=== PATIENT | male | born 2000 | race Hispanic/Latino ===

== ENCOUNTER 2024-11-23 09:09 | Emergency (ER) | payer SELFPAY ==
[2024-11-23 09:27] VITALS: BP 114/67; PULSE 64; RESP 18; TEMP 36.4; O2SAT 100
--- NOTE | 2024-11-23 10:22 | ED.GENADULT ---
HPI - General Adult General Chief complaint: Abdominal Pain Stated complaint: abd pain and vomiting after eating Time Seen by Provider: 11/23/24 10:01 History of Present Illness HPI narrative: 23-year-old male presents To the emergency department for evaluation for upper and mid abdominal pain. Patient reports symptoms started last night. Patient did have associated nausea. Patient denies any constipation or diarrhea. Patient does report a prior history of heartburn. Patient states he did drink heavier alcohol approximately 1 week ago. Patient denies taking any ibuprofen. Patient reports symptoms have since improved. Patient denies any significant past medical history denies any abdominal surgeries. Digital Strategy Specialist services were used. Related Data Allergies Allergy/AdvReac Type Severity Reaction Status Date / Time No Known Allergies Allergy Verified 11/23/24 11:06 Review of Systems Review of Systems: All systems reviewed & are unremarkable except as noted in HPI and below Exam Narrative: APPEARANCE: Well appearing, no pain, no distress, well-nourished. HEAD: normocephalic, atraumatic. EYES: PERRLA/EOMI, conjunctivae clear. NOSE: Normal no drainage EARS:TMS clear with good light reflex. THROAT: Pharynx clear, no exudate. NECK: Supple. No adenopathy, no masses. RESPIRATORY: Airway patent, respirations nonlabored. Clear to auscultation bilaterally, no rales, rhonchi, wheezing. CARDIOVASCULAR: Regular rate and rhythm without murmurs rubs or gallops. ABDOMINAL: Mid abdominal pain MUSCULOSKELETAL: Moves all extremities. Strength/ROM intact, No edema, No calf tenderness. NEURO: Alert. Cranial nerves II through XII intact. Good gait. Good coordination SKIN: Warm, dry. Normal Color Course Vital Signs Vital signs: Vital Signs Temperature 97.6 F 11/23/24 09:27 Pulse Rate 64 11/23/24 09:27 Respiratory Rate 18 11/23/24 09:27 Blood Pressure 114/67 11/23/24 09:27 Pulse Oximetry 100 11/23/24 09:27 Oxygen Delivery Room Air 11/23/24 09:27 Temperature 97.9 F 11/23/24 11:07 Pulse Rate 94 11/23/24 12:17 Respiratory Rate 17 11/23/24 12:17 Blood Pressure 107/66 11/23/24 12:17 Pulse Oximetry 100 11/23/24 12:17 Oxygen Delivery Room Air 11/23/24 11:07 Medical Decision Making [facility] Narrative Medical decision making narrative: 23-year-old male presents emergency department for evaluation for evaluation left upper quadrant abdominal pain. Patient is currently afebrile but does have a leukocytosis of 18.8 and hemoglobin of 17.2. No significant abnormalities on the patient's CMP. INR is 1.0. Urine was positive for ketones but negative for infection. On re-evaluation patient denies any pain or complaints. Patient was treated with IV pain medications, IV fluids IV Protonix IV famotidine. Patient does describe a possible alcohol gastritis with history of GERD. Patient was advised to take omeprazole for the next 14 days to avoid NSAIDs and avoid alcohol in follow-up bland diet. All questions and concerns were addressed. Patient was comfortable plan for discharge and close follow-up. Differential Diagnosis Differential Diagnosis: Colitis, diverticulitis, appendicitis, cholelithiasis, gastritis Vital Signs Vital Signs: Vital Signs Temperature 97.6 F 11/23/24 09:27 Pulse Rate 64 11/23/24 09:27 Respiratory Rate 18 11/23/24 09:27 Blood Pressure 114/67 11/23/24 09:27 Pulse Oximetry 100 11/23/24 09:27 Oxygen Delivery Room Air 11/23/24 09:27 Temperature 97.9 F 11/23/24 11:07 Pulse Rate 94 11/23/24 12:17 Respiratory Rate 17 11/23/24 12:17 Blood Pressure 107/66 11/23/24 12:17 Pulse Oximetry 100 11/23/24 12:17 Oxygen Delivery Room Air 11/23/24 11:07 Lab Data Lab results reviewed: Yes I reviewed the patient's lab results. 11/23/24 10:50 11/23/24 10:50 Labs: Lab Results 11/23/24 11/23/24 Range/Units 10:50 11:20 WBC 18.8 H (4.5-10.0) K/mm3 RBC 5.81 (4.6-6.20) M/mm3 Hgb 17.2 (14.0-18.0) g/dL Hct 51.1 (42.0-52.0) % MCV 88.0 (80-100) fl MCH 29.6 (26-34) pg MCHC 33.7 (32-36) g/dl RDW 12.9 (11.5-14.5) % Plt Count 274 (150-375) k/mm3 MPV 10.3 (7.4-10.4) fl Immature Gran % (Auto) Not Reportable Neut % (Auto) Not Reportable Lymph % (Auto) Not Reportable [place] % (Auto) Not Reportable Eos % (Auto) Not Reportable Baso % (Auto) Not Reportable Lymph # (Auto) Not Reportable [place] # (Auto) Not Reportable Eos # (Auto) Not Reportable Baso # (Auto) Not Reportable Abs Immat Gran (auto) Not Reportable Absolute Neuts (auto) Not Reportable Absolute Nucleated RBC Not Reportable Total Counted 100 Neutrophils % (Manual) 70 (46-73) % Band Neutrophils % 25 H (0-6) % Lymphocytes % (Manual) 0 L (18-44) % Monocytes % (Manual) 4 (3-9) % Eosinophils % (Manual) 1 (0-4) % Nucleated RBC % Not Reportable Abs Neuts (Manual) 17.86 H (1.3-6.7) K/mm3 Abs Lymphs (Manual) 0.00 L (1.1-4.5) K/mm3 Abs Monocytes (Manual) 0.75 (0.1-0.90) K/mm3 Absolute Eos (Manual) 0.18 (0.02-0.50) K/mm3 Platelet Estimate Adequate (Adequate) Schistocytes None seen PT 13.0 (11.1-14.7) Seconds INR 1.0 APTT 25.7 (22.3-36.8) Seconds Sodium 140 (137-145) mmol/L Potassium 4.0 (3.4-5.0) mmol/L Chloride 100 (98-107) mmol/L Carbon Dioxide 28 (22-30) mmol/L Anion Gap 12 (4-12) mmol/L BUN 13 (9-20) mg/dL Creatinine 0.72 (0.7-1.3) mg/dL Estim Creat Clear Calc Not Reportable Estimated GFR > 60 (59 - ) Glucose 116 H (65-110) mg/dL Lactic Acid 1.5 (0.7-2.0) mmol/L Calcium 9.5 (8.4-10.2) mg/dL Total Bilirubin 1.1 (0.2-1.3) mg/dL AST 31 (17-59) U/L ALT 34 (6-50) U/L Alkaline Phosphatase 58 (38-126) U/L Total Protein 9.0 H (6.3-8.2) g/dL Albumin 5.4 H (3.5-5.1) g/dL Lipase 52 (23-300) U/L Urine Color Yellow (Yellow) Urine Appearance Clear (Clear) Urine pH 5.5 (5.0-9.0) Ur Specific [place] 1.033 (1.001-1.035) Urine Protein Trace (Negative) mg/dL Urine Glucose (UA) 1+ H (Negative) mg/dL Urine Ketones 4+ H (Negative) mg/dL Ur Blood (Man) Negative (Negative) Urine Nitrate Negative (Negative) Urine Bilirubin Negative (Negative) Urine Urobilinogen 1.0 (<2.0) mg/dL Add Ur Microanalysis Reviewed Leukocyte Esterase Rfl Negative (Negative) [place]/UL Urine RBC 0-2 (0-2) /hpf Urine WBC 0-5 (0-3) /hpf Ur Squamous Epith Cells None seen (Few) /hpf Urine Bacteria None seen /hpf Urine Casts 0-2 Urine Mucus Present /lpf Discharge Plan Discharge Clinical Impression: Gastritis Patient Disposition: Home Condition: Stable Instructions: Antibiotic Form, Gastritis (DC), Diet for Stomach Ulcers and Gastritis (ED), Abdominal Pain (ED) Additional Instructions: Follow a bland diet. Avoid alcohol and avoid NSAIDs. Omeprazole as directed for the next 14 days. Have close follow-up with your primary care physician. I also do recommend close follow-up with GI. Patient Language: Turkmen Prescriptions: New omeprazole 20 mg capsule,delayed release(DR/EC) 20 mg PO DAILY 14 Days Qty: 14 0RF Follow-up/Referrals: Maninder Harmon MD [Physician] - UNKNOWN,DOCTOR [Primary Care Provider] -
[2024-11-23 10:55] LABS: Hematocrit 51.1 % (42.0-52.0); Hemoglobin 17.2 g/dL (14.0-18.0); Mean Corpuscular HGB Conc 33.7 g/dl (32-36); Mean Corpuscular Hemoglobin 29.6 pg (26-34); Mean Platelet Volume 10.3 fl (7.4-10.4); Platelet Count Result 274 k/mm3 (150-375); Red Blood Count 5.81 M/mm3 (4.6-6.20); Red Cell Distribution Width 12.9 % (11.5-14.5); White Blood Count 18.8 K/mm3 (4.5-10.0)
[2024-11-23 11:04] LABS: Alanine Aminotransferase 34 U/L (6-50); Albumin Level 5.4 g/dL (3.5-5.1); Alkaline Phosphatase 58 U/L (38-126); Anion Gap 12 mmol/L (4-12); Aspartate Amino Transferase 31 U/L (17-59); Bilirubin,Total 1.1 mg/dL (0.2-1.3); Blood Urea Nitrogen 13 mg/dL (9-20); Calcium 9.5 mg/dL (8.4-10.2); Carbon Dioxide 28 mmol/L (22-30); Chloride 100 mmol/L (98-107); Estimated Glomerular Filt Rate > 60; Glucose 116 mg/dL (65-110); Lipase 52 U/L (23-300); Sodium 140 mmol/L (137-145)
[2024-11-23 11:05] LABS: Lactic Acid Reflex 1.5 mmol/L (0.7-2.0)
[2024-11-23 11:07] VITALS: BP 118/76; PULSE 76; RESP 19; TEMP 36.6; O2SAT 100
[2024-11-23] MEDS: LACTATED RINGERS 1,000 ML 999 ML IV CONT (11:11)
[2024-11-23] MEDS: HYDROmorphone HCL INJ (*CRX) 2 MG/ML VIAL 1 MG IV PUSH (11:12)
[2024-11-23] MEDS: PANTOPRAZOLE SODIUM IV 40 MG VIAL IV PUSH (11:13)
[2024-11-23] MEDS: FAMOTIDINE 20 MG/2 ML VIAL IV PUSH (11:13)
[2024-11-23 11:16] LABS: Partial Thromboplastin Time 25.7 Seconds (22.3-36.8)
[2024-11-23 11:23] LABS: Band Neutrophils Percent 25 % (0-6); Neutrophils Absolute Manual 17.86 K/mm3 (1.3-6.7); Neutrophils Percent Manual 70 % (46-73); Total Cells Counted 100
[2024-11-23 11:24] LABS: Eosinophils Absolute Manual 0.18 K/mm3 (0.02-0.50); Eosinophils Percent Manual 1 % (0-4); Lymphocytes Percent Manual 0 % (18-44); Monocytes Absolute Manual 0.75 K/mm3 (0.1-0.90); Monocytes Percent Manual 4 % (3-9); Platelet Estimate Adequate (Adequate); Schistocytes None Seen
[2024-11-23 11:50] LABS: Add Urine Microscopic? YES; Appearance Urine Clear (Clear); Bacteria Urine None Seen /hpf; Bilirubin Urine Negative (Negative); Blood Urine Negative (Negative); Color Urine Yellow (Yellow); Glucose Urine UA 1+ mg/dL (Negative); Ketones Urine 4+ mg/dL (Negative); Leukocyte Esterase Ur Negative LEU/UL (Negative); Mucus Urine Present /lpf; Need Manual Microscopic Reviewed; Nitrate Urine Negative (Negative); Non Pathogenic Casts 0-2; Protein Urine Trace mg/dL (Negative); RBC Urine 0-2 /hpf (0-2); Specific Grav Ur 1.033 (1.001-1.035); Squamous Epithelial Cell Urine None Seen /hpf (Few); WBC Urine 0-5 /hpf (0-3); pH Urine 5.5 (5.0-9.0)
[2024-11-23 12:00] VITALS: BP 110/76; PULSE 87; RESP 17; O2SAT 100
[2024-11-23 12:17] VITALS: BP 107/66; PULSE 94; RESP 17; O2SAT 100
== END 2024-11-23 12:19 | disposition home or self-care (01) ==
PROVIDERS: Emergency Provider Emergency Medicine
DX: K29.70 Gastritis, unspecified, without bleeding (principal)
CPT/HCPCS: 36415; 80053; 81001; 83605; 83690; 85025; 85610; 85730; 96361; 96374; 96375; 99284; J1171; J2470; J7120

== ENCOUNTER 2025-01-22 19:02 | Observation (INO) | payer SELFPAY ==
--- NOTE | ~2025-01-22 | CT_ITS ---
CLINICAL INDICATION: Nausea vomiting and diarrhea with epigastric pain COMPARISON: None. TECHNIQUE: Multiple contiguous axial images of the abdomen and pelvis were performed following the ad ministration of with 100 mL Omnipaque-350 intravenous contrast The dose-length product (DLP) was 254.33 mGy-cm. Automated exposure control and iterative reconstruction technique were employed. FINDINGS/OBSERVATIONS: Visualized lower thorax: The bilateral lung bases are clear. The heart is of normal size, without pericardial effusion. Liver: The liver demonstrates homogeneous enhancement and is not enlarged. Gallbladder and biliary system: The gallbladder is distended, and otherwise unremarkable. Pancreas: The pancreas enhances homogeneously without ductal dilatation. Spleen: The spleen enhances homogeneously and is not enlarged. Kidneys: The bilateral kidneys enhance symmetrically without hydronephrosis or renal calculi. Adrenal glands: Unremarkable. Gastrointestinal tract: Significant mural thickening is identified within the distal stomach, duodenum and proximal small bow el. Mural thickening within the cecum is also noted. Fecal stasis within the distal colon and rectum. Appendix: The appendix is distended measuring 12 mm in caliber with surrounding inflammatory change and hyperem ia. Vasculature: Unremarkable. Lymph nodes: No pathologically enlarged or morphologically suspicious lymph nodes within the retroperitoneum or at the root of the mesentery. Pelvic structures: The bladder is distended, and otherwise unremarkable. The prostate gland is not enlarged. Body wall and musculoskeletal: Small fat-containing umbilical hernia. No significant degenerative disease within the lower thoracic or lumbosacral spine. IMPRESSION: Acute nonruptured appendicitis, as detailed above. Reviewed, dictated and finalized at location A.
[2025-01-22 19:32] VITALS: BP 134/96; PULSE 55; RESP 16; TEMP 36.7; O2SAT 100
--- NOTE | 2025-01-22 19:38 | PC.NURSE ---
Pt requires installment loan collector. Rerecording Mixer Frank #[id number] used for triage assessment.
[2025-01-22 19:56] LABS: Basophils Absolute Auto 0.1 K/mm3 (0.0-0.1); Basophils Percent Auto 0.3 % (0.2-1.2); Eosinophils Percent Auto 0.1 % (0-4.4); Hematocrit 50.7 % (42.0-52.0); Hemoglobin 17.4 g/dL (14.0-18.0); Immature Granulocyte Percent A 0.5 % (0-0.5); Lymphocytes Absolute Auto 3.51 K/mm3 (0.9-3.2); Lymphocytes Percent Auto 16.8 % (18.3-44.2); Mean Corpuscular HGB Conc 34.3 g/dl (32-36); Mean Corpuscular Hemoglobin 29.1 pg (26-34); Mean Corpuscular Volume 84.9 fl (80-100); Mean Platelet Volume 10.2 fl (7.4-10.4); Monocytes Absolute Auto 1.8 K/mm3 (0.1-0.6); Monocytes Percent Auto 8.5 % (2.6-8.5); Neutrophils Absolute Auto 15.5 K/mm3 (1.3-6.7); Neutrophils Percent Auto 73.8 % (45.5-73.1); Platelet Count Result 287 k/mm3 (150-375); Red Blood Count 5.97 M/mm3 (4.6-6.20); Red Cell Distribution Width 12.5 % (11.5-14.5); White Blood Count 20.9 K/mm3 (4.5-10.0)
[2025-01-22] MEDS: SODIUM CHLORIDE 0.9% IV 1,000 ML 999 ML IV CONT (19:57)
[2025-01-22] MEDS: PANTOPRAZOLE SODIUM IV 40 MG VIAL IV PUSH (19:58)
[2025-01-22] MEDS: ONDANSETRON INJ 4 MG/2 ML VIAL IV PUSH ×2 (19:58→21:13)
--- NOTE | 2025-01-22 19:59 | PC.NURSE ---
Toucher Up Cristofer #[id number] used for translation and education of medication administration. All questions answered.
--- NOTE | 2025-01-22 20:00 | ED_ITS ---
HPI - General Adult General Chief complaint: Nausea/Vomiting/Diarrhea Stated complaint: vomiting, upper abdominal pain Time Seen by Provider: 01/22/25 19:43 History of Present Illness HPI narrative: Patient is a 24-year-old gentleman who presents emergency department with chief complaint of abdominal pain. Patient reports he started having sharp pain in his epigastric region patient reports that he has had nausea and had several episodes of vomiting in the emergency department whenever he arrived. Patient reports he has recently started on omeprazole Related Data Allergies Allergy/AdvReac Type Severity Reaction Status Date / Time No Known Allergies Allergy Verified 01/22/25 19:37 Review of Systems 2 Review of Systems: A 10 system review of systems was completed on the patient and is negative except for what is stated in the HPI. Nursing and ancillary documentation was reviewed. Exam 2 Narrative: GENERAL: Well-appearing, well-nourished, and in no acute distress. HEAD: Normocephalic, atraumatic. EYES: PERRLA and EOMI. ENT: Nares clear, no rhinorrhea or epistaxis. Mucous membranes moist. NECK: Supple. CHEST: Clear to auscultation. No respiratory distress. HEART: Regular rate and rhythm. No murmur heard. Normal peripheral pulses. ABDOMEN: Soft, tenderness to palpation in the epigastric region, nondistended, normal active bowel sounds. EXTREMITIES: Normal range of motion. No edema. SKIN: Warm, dry, no rash. NEURO: No focal deficits. Alert and oriented x3. PSYCH: Normal mood and affect. Course Vital Signs Vital signs: Vital Signs Temperature 36.7 C 01/22/25 19:32 Pulse Rate 55 L 01/22/25 19:32 Respiratory Rate 16 01/22/25 19:32 Blood Pressure 134/96 H 01/22/25 19:32 Pulse Oximetry 100 01/22/25 19:32 Oxygen Delivery Room Air 01/22/25 19:32 Temperature 36.7 C 01/22/25 19:32 Pulse Rate 55 L 01/22/25 19:32 Respiratory Rate 16 01/22/25 19:32 Blood Pressure 134/96 H 01/22/25 19:32 Pulse Oximetry 100 01/22/25 19:32 Oxygen Delivery Room Air 01/22/25 19:32 Medical Decision Making [facility] Narrative Medical decision making narrative: Differential diagnosis includes intra-abdominal infection, diverticulitis, colitis, appendicitis Laboratory studies showed a white count of 20.9 electrolytes are within normal limits CT scan showed uncomplicated appendicitis Vital Signs Vital Signs: Vital Signs Temperature 36.7 C 01/22/25 19:32 Pulse Rate 55 L 01/22/25 19:32 Respiratory Rate 16 01/22/25 19:32 Blood Pressure 134/96 H 01/22/25 19:32 Pulse Oximetry 100 01/22/25 19:32 Oxygen Delivery Room Air 01/22/25 19:32 Temperature 36.7 C 01/22/25 19:32 Pulse Rate 55 L 01/22/25 19:32 Respiratory Rate 16 01/22/25 19:32 Blood Pressure 134/96 H 01/22/25 19:32 Pulse Oximetry 100 01/22/25 19:32 Oxygen Delivery Room Air 01/22/25 19:32 Lab Data 01/22/25 19:49 01/22/25 19:49 Labs: Lab Results 01/22/25 Range/Units 19:49 WBC 20.9 H (4.5-10.0) K/mm3 RBC 5.97 (4.6-6.20) M/mm3 Hgb 17.4 (14.0-18.0) g/dL Hct 50.7 (42.0-52.0) % MCV 84.9 (80-100) fl MCH 29.1 (26-34) pg MCHC 34.3 (32-36) g/dl RDW 12.5 (11.5-14.5) % Plt Count 287 (150-375) k/mm3 MPV 10.2 (7.4-10.4) fl Immature Gran % (Auto) 0.5 (0-0.5) % Neut % (Auto) 73.8 H (45.5-73.1) % Lymph % (Auto) 16.8 L (18.3-44.2) % [place] % (Auto) 8.5 (2.6-8.5) % Eos % (Auto) 0.1 (0-4.4) % Baso % (Auto) 0.3 (0.2-1.2) % Lymph # (Auto) 3.51 H (0.9-3.2) K/mm3 [place] # (Auto) 1.8 H (0.1-0.6) K/mm3 Eos # (Auto) 0.0 (0-0.3) K/mm3 Baso # (Auto) 0.1 (0.0-0.1) K/mm3 Abs Immat Gran (auto) 0.10 H (0.00-0.031) K/mm3 Absolute Neuts (auto) 15.5 H (1.3-6.7) K/mm3 Absolute Nucleated RBC 0.000 (0.0-0.012) K/mm3 Nucleated RBC % 0.0 (0.0-0.2) % Sodium 140 (137-145) mmol/L Potassium 3.3 L (3.4-5.0) mmol/L Chloride 102 (98-107) mmol/L Carbon Dioxide 28 (22-30) mmol/L Anion Gap 10 (4-12) mmol/L BUN 11 (9-20) mg/dL Creatinine 0.89 (0.7-1.3) mg/dL Estim Creat Clear Calc 96 ml/min Estimated GFR > 60 (59 - ) Glucose 122 H (65-110) mg/dL Calcium 9.6 (8.4-10.2) mg/dL Total Bilirubin 0.7 (0.2-1.3) mg/dL AST 40 (17-59) U/L ALT 56 H (6-50) U/L Alkaline Phosphatase 53 (38-126) U/L Total Protein 8.1 (6.3-8.2) g/dL Albumin 4.9 (3.5-5.1) g/dL Lipase 48 (23-300) U/L Discharge Plan Discharge Clinical Impression: Acute appendicitis Patient Disposition: Still a Patient Condition: Stable Patient Language: Argentine Prescriptions: No Action omeprazole 20 mg capsule,delayed release(DR/EC) 20 mg PO DAILY 14 Days Qty: 14 0RF Follow-up/Referrals: UNKNOWN,DOCTOR [Primary Care Provider] - Time of Disposition: 20:54
[2025-01-22 20:07] LABS: Alanine Aminotransferase 56 U/L (6-50); Albumin Level 4.9 g/dL (3.5-5.1); Alkaline Phosphatase 53 U/L (38-126); Anion Gap 10 mmol/L (4-12); Aspartate Amino Transferase 40 U/L (17-59); Bilirubin,Total 0.7 mg/dL (0.2-1.3); Blood Urea Nitrogen 11 mg/dL (9-20); Calcium 9.6 mg/dL (8.4-10.2); Carbon Dioxide 28 mmol/L (22-30); Chloride 102 mmol/L (98-107); Estimated CRCL calculation 96 ml/min; Estimated Glomerular Filt Rate > 60; Glucose 122 mg/dL (65-110); Lipase 48 U/L (23-300); Potassium 3.3 mmol/L (3.4-5.0); Sodium 140 mmol/L (137-145); Total Protein 8.1 g/dL (6.3-8.2)
[2025-01-22 21:11] LABS: Add Urine Microscopic? NO; Appearance Urine Clear (Clear); Bilirubin Urine Negative (Negative); Blood Urine Negative (Negative); Color Urine Yellow (Yellow); Glucose Urine UA Negative (Negative); Ketones Urine Negative (Negative); Leukocyte Esterase Ur Negative LEU/UL (Negative); Nitrate Urine Negative (Negative); Protein Urine Negative (Negative); Specific Grav Ur 1.034 (1.001-1.035); Urobilinogen Urine 0.2 mg/dL (<2.0)
[2025-01-22] MEDS: PIPERACILLN/TAZ 3.375GM/NS50ML 3.375 GM/50 ML BAG IVPB (21:13)
[2025-01-22] MEDS: MORPHINE SULFATE (*CRX) 4 MG/ML INJ IV PUSH (21:13)
[2025-01-22 21:14] VITALS: BP 138/99; PULSE 65; RESP 17; O2SAT 100
[2025-01-22 23:44] VITALS: BMI 26.2
--- NOTE | 2025-01-22 23:46 | ADMGEN ---
This patient, Panfilo Rodriguez, was admitted to [address] [place] [address] Room 306-02. Patient/family oriented to hospital policies and general routines including ID bracelet, bed and alarms, visiting hours, pain management, procedures, bathroom and other care routines, personal items, smoking policy, room service/diet, and visiting hours. Information on how to activate the Rapid Response Team has been discussed. Patient/Family are encouraged to report perceived risks to care and to ask questions if they do not understand what they are told or what they should do.
[2025-01-22] MEDS: SODIUM CHLORIDE 0.9% IV 1,000 ML 125 ML IV CONT (23:56)
[2025-01-23] VITALS (13 sets, daily range): BP systolic 94–122; BP diastolic 49–75; PULSE 67–90; RESP 13–18; TEMP 36.2–37; O2SAT 96–100
[2025-01-23] MEDS: MORPHINE SULFATE (*CRX) 4 MG/ML INJ IV PUSH
[2025-01-23] MEDS: PIPERACILLN/TAZ 3.375GM/NS50ML 3.375 GM/50 ML BAG IVPB ×2 (03:20→08:46)
[2025-01-23 06:46] LABS: Basophils Percent Auto 0.2 % (0.2-1.2); Hematocrit 48.3 % (42.0-52.0); Hemoglobin 16.3 g/dL (14.0-18.0); Immature Granulocyte Absolute 0.09 K/mm3 (0.00-0.031); Immature Granulocyte Percent A 0.5 % (0-0.5); Lymphocytes Absolute Auto 1.65 K/mm3 (0.9-3.2); Lymphocytes Percent Auto 8.5 % (18.3-44.2); Mean Corpuscular HGB Conc 33.7 g/dl (32-36); Mean Corpuscular Hemoglobin 29.2 pg (26-34); Mean Corpuscular Volume 86.4 fl (80-100); Monocytes Absolute Auto 1.4 K/mm3 (0.1-0.6); Monocytes Percent Auto 7.1 % (2.6-8.5); Neutrophils Absolute Auto 16.3 K/mm3 (1.3-6.7); Neutrophils Percent Auto 83.7 % (45.5-73.1); Platelet Count Result 269 k/mm3 (150-375); Red Blood Count 5.59 M/mm3 (4.6-6.20); Red Cell Distribution Width 12.9 % (11.5-14.5); White Blood Count 19.4 K/mm3 (4.5-10.0)
[2025-01-23 07:12] LABS: Alanine Aminotransferase 49 U/L (6-50); Albumin Level 4.8 g/dL (3.5-5.1); Alkaline Phosphatase 43 U/L (38-126); Anion Gap 10 mmol/L (4-12); Aspartate Amino Transferase 58 U/L (17-59); Bilirubin,Total 1.1 mg/dL (0.2-1.3); Blood Urea Nitrogen 9 mg/dL (9-20); Calcium 9.1 mg/dL (8.4-10.2); Carbon Dioxide 27 mmol/L (22-30); Chloride 102 mmol/L (98-107); Estimated CRCL calculation 100 ml/min; Estimated Glomerular Filt Rate > 60; Glucose 112 mg/dL (65-110); Potassium 3.9 mmol/L (3.4-5.0); Sodium 139 mmol/L (137-145); Total Protein 7.5 g/dL (6.3-8.2)
[2025-01-23] MEDS: SODIUM CHLORIDE 0.9% IV 1,000 ML 125 ML IV CONT (08:46)
--- NOTE | 2025-01-23 08:55 | P.HP_ITS ---
H&P: HPI History of Present Illness Date/Time: 01/23/25 08:55 Chief Complaint: abdominal pain Narrative: Patient is a 24 year old, primarily [place]ib[place]ian-speaking male who presented to the ED last night with complaints of abdominal pain with associated nausea and vomiting that started yesterday morning. He reports that his last episode of emesis was last night around 9 p.m. He last ate around 11 a.m. yesterday morning and his last bowel movement was last night. No prior history of any abdominal surgeries. Patient was previously seen in [place] ED in November for gastritis and he has been taking omeprazole. No other significant medical history. CT showed evidence of acute appendicitis. Afebrile. WBC 20.9 last night ini the ED, now 19.4. He has been getting IV Zosyn. He states that pain is now significantly dec reased after the morphine. Silhouette Artist used for majority of visit (Yimi #[id number]), however network connection failed, and girlfriend at bedside was able to translate, as well as personal device translating nirmala. [facility] Social History Social History Alcohol intake: unknown Substance use: unknown Do You Feel Safe in your Home?: Yes Lack of Transportation: No Lack of Food: Never True Current Housing: I Have Housing Concerned About Future Housing: No Difficulty Paying Gas/Electric Bills: No Difficulty Paying for Meds: No Currently Unemployed: No Education: High School Diploma/GED Difficulty w/ Childcare or Family Care: No Spiritual care concerns: No Meds Home Medications and Allergies Home Medications ?Medication ?Instructions ?Recorded ?Confirmed ?Type omeprazole 20 mg capsule,delayed 20 mg PO DAILY 14 days #14 caps 11/23/24 01/22/25 Rx release Allergies Allergy/AdvReac Type Severity Reaction Status Date / Time No Known Allergies Allergy Verified 01/22/25 19:37 Vital Signs Vital Signs - 24 hr 01/22/25 19:32 01/22/25 21:14 01/23/25 06:00 Temperature 98.0 F 97.9 F Pulse Rate 55 L 65 67 Respiratory Rate 16 17 18 Blood Pressure 134/96 H 138/99 H 107/57 L Pulse Oximetry 100 100 99 Oxygen Delivery Room Air Exam Const: General: comfortable and no acute distress HENMT: Mouth: Yes moist mucous membranes Eyes: General: appearance normal, both eyes and all related structures Neck: Neck: supple Resp: Effort & Inspection: normal respiratory effort Cardio: Rate: regular rate GI: GI Palp: Yes Soft to palpation and Yes Tenderness to palpation present (GI) (RLQ tenderness that extends across lower abdomen.) : General: Yes bladder normal to palpation Skin: General skin exam: normal color and no rashes or lesions noted Extrem: General: normal to inspection Psych: Mental Status: mental status grossly normal H&P: Results Labs Labs: Short CBC 01/22/25 01/23/25 Range/Units 19:49 06:10 WBC 20.9 H 19.4 H (4.5-10.0) K/mm3 Hgb 17.4 16.3 (14.0-18.0) g/dL Hct 50.7 48.3 (42.0-52.0) % Plt Count 287 269 (150-375) k/mm3 BMP 01/22/25 01/23/25 19:49 06:10 Sodium 140 139 Potassium 3.3 L 3.9 Chloride 102 102 Carbon Dioxide 28 27 BUN 11 9 Creatinine 0.89 0.85 Glucose 122 H 112 H Calcium 9.6 9.1 Liver Function 01/22/25 01/23/25 Range/Units 19:49 06:10 Total Bilirubin 0.7 1.1 (0.2-1.3) mg/dL AST 40 58 (17-59) U/L ALT 56 H 49 (6-50) U/L Alkaline Phosphatase 53 43 (38-126) U/L Albumin 4.9 4.8 (3.5-5.1) g/dL Urine 01/22/25 Range/Units 20:52 Urine Color Yellow (Yellow) Urine Appearance Clear (Clear) Urine pH 7.0 (5.0-9.0) Ur Specific [place] 1.034 (1.001-1.035) Urine Protein Negative (Negative) mg/dL Urine Glucose (UA) Negative (Negative) mg/dL Assessment and Plan Assessment and plan (1) Acute appendicitis: Code(s): K35.80 - Unspecified acute appendicitis Status: Acute Assessment and Plan: Patient with minimal past medical history presented to the ED last night with complaints of abdominal pain. CT was significant for acute nonruptured appendicitis. WBC 20.9 in ED, now 19.4. Continue IV Zosyn preoperatively. Laparoscopic appendectomy scheduled for 1300 today. Consent obtained. Maintain NPO status. Plan Discussed patient's case and plan of care with Dr. Otero.
--- NOTE | 2025-01-23 11:56 | WPDHPUPDATE1 ---
History and Physical Update Update Date/Time: 01/23/25 11:56 History and Physical has been reviewed, including an updated exam of the patient. There are NO changes in the patient's condition. Risks, benefits, and alternatives have been discussed and questions answered. Patient agrees to proceed with procedure.
[2025-01-23] MEDS: LACTATED RINGERS 1,000 ML 30 ML IV CONT ×2 (12:00→14:03)
--- NOTE | 2025-01-23 12:09 | WPDANESEPPF ---
Anes - Initial Pre Proc Eval Procedure: Operation Date: 01/23/25 13:00 Proposed Procedures p Laparoscopic Appendectomy - Storm Otero MD Date/Time: 01/23/25 12:09 Surgeon: Storm Otero MD Pre Op Diagnosis: Acute appendicitis Patient Data Age: 24 Gender: M Height: 1.65 m Weight: 71.5 kg Last Vital Signs Temp 97.9 F 01/23/25 06:00 Pulse 67 01/23/25 06:00 Resp 18 01/23/25 06:00 BP 107/57 L 01/23/25 06:00 Pulse Ox 96 01/23/25 11:24 O2 Del Method Room Air 01/23/25 11:24 Allergies Allergy/AdvReac Type Severity Reaction Status Date / Time No Known Allergies Allergy Verified 01/22/25 19:37 Home Medications ?Medication ?Instructions ?Recorded ?Confirmed ?Type omeprazole 20 mg capsule,delayed 20 mg PO DAILY 14 days #14 caps 11/23/24 01/22/25 Rx release Laboratory Tests 01/22/25 01/22/25 01/23/25 19:49 20:52 06:10 WBC 20.9 H K/mm3 19.4 H K/mm3 (4.5-10.0) (4.5-10.0) RBC 5.97 M/mm3 5.59 M/mm3 (4.6-6.20) (4.6-6.20) Hgb 17.4 g/dL 16.3 g/dL (14.0-18.0) (14.0-18.0) Hct 50.7 % 48.3 % (42.0-52.0) (42.0-52.0) MCV 84.9 fl 86.4 fl (80-100) (80-100) MCH 29.1 pg 29.2 pg (26-34) (26-34) MCHC 34.3 g/dl 33.7 g/dl (32-36) (32-36) RDW 12.5 % 12.9 % (11.5-14.5) (11.5-14.5) Plt Count 287 k/mm3 269 k/mm3 (150-375) (150-375) MPV 10.2 fl 11.0 H fl (7.4-10.4) (7.4-10.4) Immature Gran % (Auto) 0.5 % 0.5 % (0-0.5) (0-0.5) Neut % (Auto) 73.8 H % 83.7 H % (45.5-73.1) (45.5-73.1) Lymph % (Auto) 16.8 L % 8.5 L % (18.3-44.2) (18.3-44.2) [place] % (Auto) 8.5 % 7.1 % (2.6-8.5) (2.6-8.5) Eos % (Auto) 0.1 % 0.0 % (0-4.4) (0-4.4) Baso % (Auto) 0.3 % 0.2 % (0.2-1.2) (0.2-1.2) Lymph # (Auto) 3.51 H K/mm3 1.65 K/mm3 (0.9-3.2) (0.9-3.2) [place] # (Auto) 1.8 H K/mm3 1.4 H K/mm3 (0.1-0.6) (0.1-0.6) Eos # (Auto) 0.0 K/mm3 0.0 K/mm3 (0-0.3) (0-0.3) Baso # (Auto) 0.1 K/mm3 0.0 K/mm3 (0.0-0.1) (0.0-0.1) Abs Immat Gran (auto) 0.10 H K/mm3 0.09 H K/mm3 (0.00-0.031) (0.00-0.031) Absolute Neuts (auto) 15.5 H K/mm3 16.3 H K/mm3 (1.3-6.7) (1.3-6.7) Absolute Nucleated RBC 0.000 K/mm3 0.000 K/mm3 (0.0-0.012) (0.0-0.012) Nucleated RBC % 0.0 % 0.0 % (0.0-0.2) (0.0-0.2) Sodium 140 mmol/L 139 mmol/L (137-145) (137-145) Potassium 3.3 L mmol/L 3.9 mmol/L (3.4-5.0) (3.4-5.0) Chloride 102 mmol/L 102 mmol/L (98-107) (98-107) Carbon Dioxide 28 mmol/L 27 mmol/L (22-30) (22-30) Anion Gap 10 mmol/L 10 mmol/L (4-12) (4-12) BUN 11 mg/dL 9 mg/dL (9-20) (9-20) Creatinine 0.89 mg/dL 0.85 mg/dL (0.7-1.3) (0.7-1.3) Estim Creat Clear Calc 96 ml/min 100 ml/min Estimated GFR > 60 > 60 (59 - ) (59 - ) Glucose 122 H mg/dL 112 H mg/dL (65-110) (65-110) Calcium 9.6 mg/dL 9.1 mg/dL (8.4-10.2) (8.4-10.2) Total Bilirubin 0.7 mg/dL 1.1 mg/dL (0.2-1.3) (0.2-1.3) AST 40 U/L 58 U/L (17-59) (17-59) ALT 56 H U/L 49 U/L (6-50) (6-50) Alkaline Phosphatase 53 U/L 43 U/L (38-126) (38-126) Total Protein 8.1 g/dL 7.5 g/dL (6.3-8.2) (6.3-8.2) Albumin 4.9 g/dL 4.8 g/dL (3.5-5.1) (3.5-5.1) Lipase 48 U/L (23-300) Urine Color Yellow (Yellow) Urine Appearance Clear (Clear) Urine pH 7.0 (5.0-9.0) Ur Specific [place] 1.034 (1.001-1.035) Urine Protein Negative mg/dL (Negative) Urine Glucose (UA) Negative mg/dL (Negative) Urine Ketones Negative mg/dL (Negative) Ur Blood (Man) Negative (Negative) Urine Nitrate Negative (Negative) Urine Bilirubin Negative (Negative) Urine Urobilinogen 0.2 mg/dL (<2.0) Leukocyte Esterase Rfl Negative [place]/UL (Negative) Patient hx anesthesia problems: none Family hx anesthesia problems: none Results Review: All pre-operative results and documents have been reviewed as part of the pre-operative evaluation. [facility] Social History Social History Alcohol intake: unknown Substance use: unknown Do You Feel Safe in your Home?: Yes Lack of Transportation: No Lack of Food: Never True Current Housing: I Have Housing Concerned About Future Housing: No Difficulty Paying Gas/Electric Bills: No Difficulty Paying for Meds: No Currently Unemployed: No Education: High School Diploma/GED Difficulty w/ Childcare or Family Care: No Spiritual care concerns: No Anes - Eval Final PreProcedure Day of Procedure 01/23/25 12:09 Patient weight: normal Heart: regular rate and rhythm Lungs: clear to auscultation Airway: Mallampati scale class II Neurological: alert and oriented Last oral intake: >/= 8 hours ASA classification: II Emergent: no Anesthetic plan: proceed Anesthesia type and monitoring: general ETT and standard monitoring Results Review: All pre-operative results and documents have been reviewed as part of the pre-operative evaluation. Informed Consent: The patient's anesthetic plan and its attendant risks and benefits were discussed with the patient/family/POA. Questions were solicited and answers provided to the satisfaction of the patient/family/POA.
--- NOTE | 2025-01-23 13:40 | S_PTH ---
PATIENT: Panfilo Mckenzie LOC: [id number] U#:[id number] AGE/SX: 24/M ROOM: 306 RE01/22/[address]: Storm Otero MD : 2000 BED: 02 DIS: 01/23/2025 SPEC #: [id number] RECD: 01/26/25 07:54 STATUS: NIKITA REQ #: [id number] ROXANNA: 01/23/25 13:[address]: Storm Otero DEPT: [facility] Surgical RECD BY: Kristina Aleman ENTERED: 01/26/25 07:55 SP TYPE: Surgical OTHR DR: MD Fariba Barker, UNKNOWN,DOCTOR Kisha Xavier PA-C Tissues: A - Appendix Procedures: Hematoxylin and Eosin Stain Gross and Microscopic Level 3
[2025-01-23] MEDS: BUPivacaine HCL 0.5% PF 30 ML VIAL INFILTRATE (13:45)
[2025-01-23] MEDS: KETOROLAC 30 MG/ML VIAL (*BKC) IV PUSH (13:47)
--- NOTE | 2025-01-23 14:09 | P.OP_ITS ---
Procedure Note - Detailed Date of Procedure 01/23/25 Pre-op Diagnosis Acute appendicitis Post-op Diagnosis Same Procedure Performed Laparoscopic appendectomy Surgeon Storm Otero MD [employer] [facility] Anesthesia General Indications patient is a 24-year-old male presented to the emergency with a 24hour history of lower abdominal pain which localized to right lower quadrant the abdomen. He had elevated white blood count [id number]. Abdominal exam was consistent with acute appendicitis. CT scan abdomen pelvis showed a dilated appendix with periappendiceal inflammation without perforation or abscess. He presents now for an urgent laparoscopic appendectomy Findings The appendix was inflamed but not perforated. There was no gangrene of the appendix. No periappendiceal abscess. Base of the appendix was viable. Description of Procedure After informed consent was obtained patient brought to the operating room was placed supine position and general endotracheal anesthesia was administered. A Garber catheter was placed to decompress the bladder. The abdomen was then prepped and draped usual sterile fashion. A time-out was then performed correctly identifying the patient as well as procedure to be performed. He was already in clinic scheduled IV antibiotics. I entered the abdomen left upper quadrant utilizing a 5mm Optiview port. Once inside the abdomen had unobstructed view of the right lower quadrant and pelvis. Adequate pneumoperitoneum of 15mmHg was achieved and I saw the inflamed appendix in the right lower quadrant of the abdomen. Additional trocar ports to include a 12mm periumbilical trocar port as well as a 5mm suprapubic trocar port a 5mm right lower quadrant trocar port were all then placed under direct visualization. U tilizing laparoscopic instruments and was able to manipulate the appendix of the neck identified the base. The base was viable. There was moderate inflammation of the appendix throughout without evidence of appendiceal perforation or gangrene. There is no periappendiceal abscess. With the base of the appendix exposed I made a defect through the mesoappendix just at the base with a [place] dissector. A 45mm Endo-WANDY stapler with a WANDY load was used to divide the appendix flush with the cecum. A vascular reload to the same 45mm laparoscopic stapler was then used to divide the mesoappendix. The appendix was then placed into an Endo-Catch bag and brought out though the periumbilical trocar port site. The appendix was passed off table sent to pathology for examination. I then examined both staple lines and they appeared to be intact without any bleeding. I then pulled the omentum over the cecum and the stapled appendiceal base and mesoappendix. I then removed all the trocar ports under direct visualization all port sites appeared hemostatic. The abdomen decompressed. I then irrigated out the port sites sterile saline solution hemostasis was good. I then closed the 12mm periumbilical trocar port fascial defect utilizing 0 Vicryl suture placed in a figure-eight fashion. The skin edges in all the port sites were then approximated utilizing a running subcuticular 4-0 Monocryl suture. The incisions were then cleaned the skin glue was applied. The patient tolerated the procedure well no complications. All sponges, needles, and instrument counts were correct at the end procedure. EBL was __10_cc. The patient was awakened and taken to recovery in stable and satisfactory condition. Implants None Estimated Blood Loss 10 Drains No Packing No Pathology Yes ( appendix to pathology) Complications No immediate complications Condition Stable Disposition PACU [facility] Billing Surgery - Charge Forward: Surgery Billing
--- NOTE | 2025-01-23 14:27 | PM.DS ---
DS: Admitting Diagnosis Discharge Date 01/23/2025 Admitting Diagnosis acute appendicitis DS: Discharge Diagnosis Discharge Diagnosis (1) Acute appendicitis: Code(s): K35.80 - Unspecified acute appendicitis Status: Acute DS: Summary Hospital Course Reason for hospitalization: Patient is a 24-year-old male presented to the emergency with a 24hour history of lower abdominal pain which localized to right lower quadrant. He had elevated white blood count 15207. Abdominal exam was consistent with acute appendicitis. CT scan abdomen pelvis showed a dilated appendix with periappendiceal inflammation without perforation or abscess. He presents now for an urgent laparoscopic appendectomy. Hospital Course: Patient is a 24-year-old, primarily Amharic-speaking male presented to the ED on 01/22/2025 with complaints of abdominal pain in the right lower quadrant with associated nausea and vomiting that started that day. In the emergency department he was given Zofran for nausea and morphine for pain. A CT scan was ordered and demonstrated a distended appendix measuring 12 mm with surrounding inflammatory change and hyperemia suggesting non ruptured appendicitis. Labs in the ED were significant for white blood cell count of 20.9. Patient was given IV Zosyn and admitted to inpatient room. Upon today's visit white blood cell count was down to 19.4. Patient was feeling better from a pain and nausea standpoint. He was taken back to the OR for laparoscopic appendectomy around 1:00 p.m. the patient tolerated the procedure well with no complications. He was awakened and taken to recovery in stable condition. He will be discharged today when he is afebrile, ambulating independently, tolerating diet without nausea or vomiting, and is able to tolerate pain with only oral pain medication. He will follow up with Dr. Otero in outpatient clinic in 2 weeks. Status at Discharge Functional status at discharge: independent ambulation Overall status at discharge: patient is back to baseline Time Spent with Patient Time attestation: Total time spent providing and/or coordinating discharge services: DS: Data Data Completed and Pending Pending studies at discharge: Pending at discharge 01/23/25 13:40 Surgical [PTH] Routine Labs on day of discharge: Labs from last 24 hours 01/23/25 01/22/25 01/22/25 06:10 20:52 19:49 WBC 19.4 H 20.9 H RBC 5.59 5.97 Hgb 16.3 17.4 Hct 48.3 50.7 MCV 86.4 84.9 MCH 29.2 29.1 MCHC 33.7 34.3 RDW 12.9 12.5 Plt Count 269 287 MPV 11.0 H 10.2 Immature Gran % (Auto) 0.5 0.5 Neut % (Auto) 83.7 H 73.8 H Lymph % (Auto) 8.5 L 16.8 L [place] % (Auto) 7.1 8.5 Eos % (Auto) 0.0 0.1 Baso % (Auto) 0.2 0.3 Lymph # (Auto) 1.65 3.51 H [place] # (Auto) 1.4 H 1.8 H Eos # (Auto) 0.0 0.0 Baso # (Auto) 0.0 0.1 Abs Immat Gran (auto) 0.09 H 0.10 H Absolute Neuts (auto) 16.3 H 15.5 H Absolute Nucleated RBC 0.000 0.000 Nucleated RBC % 0.0 0.0 Sodium 139 140 Potassium 3.9 3.3 L Chloride 102 102 Carbon Dioxide 27 28 Anion Gap 10 10 BUN 9 11 Creatinine 0.85 0.89 Estim Creat Clear Calc 100 96 Estimated GFR > 60 > 60 Glucose 112 H 122 H Calcium 9.1 9.6 Total Bilirubin 1.1 0.7 AST 58 40 ALT 49 56 H Alkaline Phosphatase 43 53 Total Protein 7.5 8.1 Albumin 4.8 4.9 Lipase 48 Urine Color Yellow Urine Appearance Clear Urine pH 7.0 Ur Specific [place] 1.034 Urine Protein Negative Urine Glucose (UA) Negative Urine Ketones Negative Ur Blood (Man) Negative Urine Nitrate Negative Urine Bilirubin Negative Urine Urobilinogen 0.2 Leukocyte Esterase Rfl Negative Discharge Plan Discharge Attending physician on discharge: Storm Otero Discharging Clinician: Storm Otero Anticipated Discharge Date/Time: 01/23/25 19:00 Patient Disposition: Home Activity: other - see discharge instructions Diet: regular Wound Care Instructions: other - see discharge instructions Discharge Instructions: May discharge home when stable. Follow up with Dr. Otero in the office in 2 weeks. Patient to call [phone] for an appointment. May shower in 24hours but do not soak incisions under water for 2 weeks. No lifting more than 10 to 15 lb for 2 weeks. May advance diet as tolerated. No driving for at least 3 days or until no longer taking any narcotic pain medication. Resume all home medications. Prescription for narcotic pain medicines will be sent to the patient's pharmacy if needed. May use Tylenol and/or ibuprofen in addition to or in place of narcotic pain medications for postoperative pain. Incisions need to be dry and not bleeding, patient should be ambulating on his own to bathroom and the hallways, pain controlled with only oral narcotic or nonnarcotic pain medications, afebrile with stable vital signs, and tolerating solid food without nausea or vomiting to be discharged this evening. Patient Instructions: Antibiotic Form Patient Language: Amharic Stand Alone Forms: General Discharge Information Follow-up/Referrals: Storm Otero MD [Physician] - Discharge Medications: New hydrocodone-acetaminophen 5-325 mg tablet 1 - 2 tablet PO Q6H PRN (Reason: pain) Qty: 15 0RF Continued omeprazole 20 mg capsule,delayed release(DR/EC) 20 mg PO DAILY 14 Days Qty: 14 0RF Date of admission: 01/22/25 21:04 Primary Care Provider: UNKNOWN,DOCTOR Admitting Provider: Storm Otero Attending physician on admission: Storm Otero Condition: Stable
== END 2025-01-23 18:10 | disposition home or self-care (01) ==
LOC: ANHED 20:54 → ANH3MEDSUR 21:53
PROVIDERS: Admitting Provider Surgery; Emergency Provider Emergency Medicine; Visit Provider Surgery
PROC: 0DTJ4ZZ Resection of Appendix, Percutaneous Endoscopic Approach (ICD-10-PCS; CPT 44970; principal; 2025-01-23 13:00)
DX: K35.80 Unspecified acute appendicitis (principal); Z79.899 Other long term (current) drug therapy
CPT/HCPCS: 44970; 36415; 74177; 80053; 81003; 83690; 85025; 88304; 96361; 96365; 96375; 96376; 99285; G0378; J1100; J1885; J2003; J2250; J2270; J2405; J2470; J2543; J2704; J3010; J7030; J7120; Q9967